=== PATIENT | male | born 1950 | race Caucasian/White ===

== ENCOUNTER 2019-12-02 02:13 | Inpatient (IN) | payer MEDICARE ==
[~2019-12-02] VITALS: Ht 177.8 cm; Wt 85.0 kg
--- NOTE | 2019-12-02 02:15 | NUR ---
BIBA FROM HOME GIRLFRIEND STATES PT HAS BEEN ALTERED X3 DAYS AND FOUND EMPTY BOTTLE OF VODKA. PT FOUND TREMULOUS AND DIAPHORETIC. FSBS BY EMS 207. PT WITH HX OF ETOH, PER GIRLFRIEND HAS BEEN SOBER X3 YEARS. NO MEDS GIVEN BY EMS. PLACED ON CARDIAC AND VITALS SIGNS MONITORS. ERP AT BEDSIDE FOR EVAL
[2019-12-02] MEDS ORDERED: LORazepam 2 MG/ML, 1ML ONE ×4 (02:23→04:42)
[2019-12-02] MEDS: LORazepam 2 MG/ML, 1ML IVPush PRN ×7 (02:28→15:26)
[2019-12-02] MEDS ORDERED: CEFTRIAXONE PMX 1GM/50ML 50 ML ONE (02:30)
[2019-12-02] MEDS ORDERED: MAGNESIUM SULFATE 1 GM, THIAMINE 100 MG, FOLIC ACID 1 MG, MVI ADULT 10 ML in SODIUM CHL... IV ONE (02:30)
[2019-12-02] MEDS ORDERED: CEFTRIAXONE PMX 1GM/50ML 50 ML IV ONE (02:30)
[2019-12-02] MEDS ORDERED: SODIUM CHLORIDE 0.9% 1,000ML IVBOLUS ONE (02:30)
[2019-12-02] MEDS ORDERED: PLEASE ENTER ALLERGIES MC SCH (02:30)
[2019-12-02 02:59] LABS: ALBUMIN 3.6 g/dL (3.4-5.0); ANION GAP 13 mmol/L (5-15); CALCIUM 9.8 mg/dL (8.5-10.1); CHLORIDE 94 mmol/L (98-107)
[2019-12-02] MEDS ORDERED: LORazepam 2 MG/ML, 1ML IVPush ONE (03:00)
[2019-12-02 03:02] LABS: ALANINE AMINOTRANSFERASE 40 U/L (12-78); BILIRUBIN,TOTAL 1.6 mg/dL (0.2-1.0); CREATININE 1.35 mg/dL (0.7-1.3); TOTAL PROTEIN 9.5 g/dL (6.4-8.2); TROPONIN I 0.108 ng/mL (0.000-0.045)
[2019-12-02] MEDS ORDERED: ACETAMINOPHEN 650 MG SUPP ONE (03:05)
[2019-12-02 03:16] LABS: ALKALINE PHOSPHATASE 128 U/L (45-117); CREATINE KINASE, TOTAL 1343 U/L (39-308)
[2019-12-02 03:24] LABS: MEAN CORPUSCULAR HEMOGLOBIN 26.9 pg (27.5-34.5); MEAN CORPUSCULAR HGB CONC 32.1 g/dL (33.2-36.2); MEAN CORPUSCULAR VOLUME 83.7 fL (81-97); MEAN PLATELET VOLUME 9.1 fL (7.4-10.4); RED BLOOD COUNT 6.47 x10^6/uL (4.38-5.82); RED CELL DISTRIBUTION WIDTH 15.7 % (9.4-14.8)
[2019-12-02 03:27] LABS: PLATELET COUNT 11 x10^3/uL (130-400)
[2019-12-02 03:28] LABS: BASOPHILS # (AUTO) 0.04 x10^3/uL (0-0.1); BASOPHILS % (AUTO) 0 % (0-1); EOSINOPHILS % (AUTO) 0 % (1-7); LYMPHOCYTES # (AUTO) 1.12 x10^3/uL (1-3.4); LYMPHOCYTES % (AUTO) 5 % (22-44); MD SCAN; MONOCYTES # (AUTO) 1.23 x10^3/uL (0.2-0.8); MONOCYTES % (AUTO) 5 % (2-9); NEUTROPHILS # (AUTO) 22.75 x10^3/uL (1.8-6.8); NEUTROPHILS % (AUTO) 91 % (42-75)
[2019-12-02] MEDS ORDERED: LEVETIRACETAM 1,000 MG in SODIUM CHLORIDE 0.9% 100 ML IV ONE (03:30)
[2019-12-02] MEDS ORDERED: ACETAMINOPHEN 650 MG SUPP PR ONE (03:30)
[2019-12-02 03:33] LABS: SALICYLATE LEVEL < 1.7 mg/dL (2.8-20.0)
--- NOTE | 2019-12-02 03:36 | NUR ---
pt moved to t3
--- NOTE | 2019-12-02 03:49 | NUR ---
REPORT GIVEN TO ELENA MENDOZA.
--- NOTE | 2019-12-02 03:50 | NUR ---
PT HEAD OF BED RAISED TO 30 DEG
[2019-12-02 03:59] LABS: INTERNATIONAL NORMALIZED RATIO 1.01 (0.93-1.1); PROTHROMBIN TIME 10.7 Seconds (9.6-11.5)
--- NOTE | 2019-12-02 04:07 | NUR ---
PROVIDER REQUESTED PT SYSTOLIC B/P BE KEPT BETWEEN 150-180
[2019-12-02 04:48] VITALS: BP 144/87
[2019-12-02 05:03] VITALS: BP 135/84
--- NOTE | 2019-12-02 05:10 | NUR ---
GAVE REPORT TO PATRICIA MENDOZA IN CCU
[2019-12-02] MEDS ORDERED: SODIUM CHLORIDE 0.9% 1,000 ML IV SCH (05:15)
[2019-12-02 05:17] VITALS: BP 139/82
--- NOTE | 2019-12-02 05:24 | NUR ---
PT PLACED ON 2L NC
[2019-12-02] MEDS ORDERED: PHARMACY MAY ADJ FOR RENAL FX MC PRN (05:30)
[2019-12-02] MEDS ORDERED: VANCOMYCIN PER PHARMACY MC PRN (05:30)
[2019-12-02] MEDS ORDERED: PROMETHAZINE 25 MG/ML, 1ML IM PRN (05:30)
[2019-12-02] MEDS ORDERED: ACETAMINOPHEN 650 MG SUPP PR PRN (05:30)
[2019-12-02] MEDS ORDERED: PIPERACILLIN/TAZO/PMX 3.375GM 50 ML IV SCH (05:30)
[2019-12-02] MEDS ORDERED: ONDANSETRON 2MG/ML, 2ML IVPush PRN (05:30)
[2019-12-02] MEDS ORDERED: LEVETIRACETAM 1,000 MG in SODIUM CHLORIDE 0.9% 100 ML IV SCH (05:30)
[2019-12-02 05:42] LABS: MICROSCOPIC AUTO
[2019-12-02 05:52] LABS: AMPHETAMINE SCREEN, URINE Negative (Negative); BARBITURATE SCREEN, URINE Negative (Negative); BENZODIAZEPINE SCREEN, URINE Negative (Negative); CANNABINOID SCREEN, URINE Negative (Negative); COCAINE SCREEN, URINE Negative (Negative); METHADONE SCREEN, URINE Negative (Negative); OPIATE SCREEN, URINE Negative (Negative)
[2019-12-02] MEDS ORDERED: SCOPOLAMINE 1MG PATCH TD PRN (06:00)
[2019-12-02] MEDS ORDERED: BISACODYL 5 MG EC TABLET PO PRN (06:00)
[2019-12-02] MEDS ORDERED: ATROPINE OPHTH SOLN 1%, 5ML PO PRN (06:00)
--- NOTE | 2019-12-02 06:01 | NUR ---
Thelma chacon in ED - 12/02/19 at 0603 by KURT PT CARE LEVEL CHANGED PER FAMILY REQUEST TO PALATIVE CARE. PROVIDER REQUESTED NICARDIMIN
--- NOTE | 2019-12-02 06:03 | NUR ---
PT CARE LEVEL CHANGED PER FAMILY REQUEST TO PALATIVE CARE. PROVIDER REQUESTED NICARDIPINE DRIP BE STOPED
[2019-12-02 06:05] VITALS: BP 143/81
[2019-12-02] MEDS ORDERED: PLEASE ENTER ACCURATE WEIGHT MC SCH (07:00)
[2019-12-02] MEDS ORDERED: VANCOMYCIN 2,100 MG in SODIUM CHLORIDE 0.9% 500 ML IV ONE (09:00)
[2019-12-02] MEDS ORDERED: DOCUSATE 100 MG CAPSULE PO SCH (09:00)
[2019-12-02] MEDS ORDERED: VANCOMYCIN 2,000 MG in SODIUM CHLORIDE 0.9% 500 ML IV ONE (09:00)
[2019-12-02] MEDS ORDERED: FAMOTIDINE 20 MG/2 ML IVPush SCH (09:00)
[2019-12-02 13:40] LABS: CREATINE KINASE, TOTAL 740 U/L (39-308); TROPONIN I 0.137 ng/mL (0.000-0.045)
[2019-12-02] MEDS: MORPHINE SULFATE 4 MG/ML, 1ML IVPush PRN ×3 (17:13→23:05)
[2019-12-03] MEDS ORDERED: VANCOMYCIN 1,900 MG in SODIUM CHLORIDE 0.9% 250 ML IV SCH (03:00)
[2019-12-03] MEDS: MORPHINE SULFATE 4 MG/ML, 1ML IVPush PRN ×2 (03:50→06:34)
[2019-12-03] MEDS: LORazepam 2 MG/ML, 1ML IVPush PRN ×3 (08:17→15:56)
== END 2019-12-03 17:13 | disposition expired | DRG 871 ==
LOC: ED 04:19 → EDIP 04:30 → 3N 06:45 → 3WST 17:02
PROVIDERS: ADMIT Family Medicine; ATTEND Internal Medicine
PROC: 30233R1 Transfusion of Nonautologous Platelets into Peripheral Vein, Percutaneous Approach (ICD-10-PCS; principal; 2019-12-02)
DX: A41.9 Sepsis, unspecified organism (principal); S06.6X0A Traumatic subarachnoid hemorrhage without loss of consciousness, initial encounter; S06.5X0A Traumatic subdural hemorrhage without loss of consciousness, initial encounter; G93.41 Metabolic encephalopathy; I21.4 Non-ST elevation (NSTEMI) myocardial infarction; J18.9 Pneumonia, unspecified organism; E87.1 Hypo-osmolality and hyponatremia; F10.239 Alcohol dependence with withdrawal, unspecified; I16.1 Hypertensive emergency; M62.82 Rhabdomyolysis; N17.9 Acute kidney failure, unspecified; R65.20 Severe sepsis without septic shock; D64.9 Anemia, unspecified; D69.6 Thrombocytopenia, unspecified; Z51.5 Encounter for palliative care
CPT/HCPCS: 36415; 70450; 71045; 80053; 80307; 81001; 82140; 82550; 82962; 83605; 84145; 84484; 85025; 85610; 85730; 86850; 86900; 87040; 93005; 96365; 96375; 96376; 99291; 99292; G0378; J0696; J1953; J2270; J3411; J3475; J2060; J7030; J7050; P9035